=== PATIENT | female | born 1940 | race Caucasian/White ===

== ENCOUNTER 2020-10-27 08:32 | Day surgery (SDC) | payer MEDICARE, SELFPAY ==
[2020-10-20 16:33] VITALS: BMI 41.1
--- NOTE | 2020-10-23 14:38 | HO.ANESPROP2 ---
Documented by User: Loni Juárez NP 10/28/20 08:34 HPI - Anesthesia Eval Consult details Narrative: 80yo F for Left Cataract Extraction IOL Insertion PCP cleared No prev cataract on [facility] Past Medical History Medical History Arthritis COVID-19 vaccine series completed HTN (hypertension) Migraines Surgical History Surgical History History of incision and drainage Hx of appendectomy Social History Social History Patient Tobacco Use Status: Never used Tobacco Are you DNR?: No Advance Directives: No Advance Directives Information Provided: No Advance Directives on File: No Meds Allergies Allergy/AdvReac Type Severity Reaction Status Date / Time Penicillins Allergy Rash Verified 10/20/20 16:26 Home Medications Medication Instructions Recorded Confirmed Last Taken Type acetaminophen 325 mg tablet 650 mg PO QID PRN 10/20/20 10/20/20 Unknown History aspirin 81 mg tablet,delayed 81 mg PO DAILY 10/20/20 10/20/20 Unknown History release butalbital 50 mg-acetaminophen 325 1 cap PO QID PRN 10/20/20 10/20/20 Unknown History mg capsule calcium carbonate 600 mg (1,500 tab PO 10/20/20 Unknown History mg)-vitamin D3 400 unit tablet hydralazine 25 mg tablet 25 mg PO TID 10/20/20 10/20/20 10/27/20 History hydrochlorothiazide 25 mg tablet 25 mg PO DAILY 10/20/20 10/20/20 Unknown History magnesium oxide 400 mg PO DAILY 10/20/20 10/20/20 Unknown History metoprolol tartrate 100 mg tablet 100 mg PO BID 10/20/20 10/20/20 10/27/20 History potassium chloride 10 mEq 10 meq PO DAILY 10/20/20 10/20/20 Unknown History capsule,extended release Exam Exam Date and Time: October 23, 2020 1438 Height,Weight and Vital Signs: Height 5 ft 4 in Weight 108.862 kg Assessment and Plan Assessment Anesthesia Assessment: Chart Reviewed Documented by User: Jenna Conti MD 10/27/20 09:52 [facility] Past Medical History Medical History Arthritis COVID-19 vaccine series completed HTN (hypertension) Migraines Family History Family history of problems with anesthesia: Yes Surgical History Surgical History History of incision and drainage Hx of appendectomy History of Problems with Anesthesia: No Social History Social History Patient Tobacco Use Status: Never used Tobacco Are you DNR?: No Advance Directives: No Advance Directives Information Provided: No Advance Directives on File: No Meds Allergies Allergy/AdvReac Type Severity Reaction Status Date / Time Penicillins Allergy Rash Verified 10/20/20 16:26 Home Medications Medication Instructions Recorded Confirmed Last Taken Type acetaminophen 325 mg tablet 650 mg PO QID PRN 10/20/20 10/20/20 Unknown History aspirin 81 mg tablet,delayed 81 mg PO DAILY 10/20/20 10/20/20 Unknown History release butalbital 50 mg-acetaminophen 325 1 cap PO QID PRN 10/20/20 10/20/20 Unknown History mg capsule calcium carbonate 600 mg (1,500 tab PO 10/20/20 Unknown History mg)-vitamin D3 400 unit tablet hydralazine 25 mg tablet 25 mg PO TID 10/20/20 10/20/20 10/27/20 History hydrochlorothiazide 25 mg tablet 25 mg PO DAILY 10/20/20 10/20/20 Unknown History magnesium oxide 400 mg PO DAILY 10/20/20 10/20/20 Unknown History metoprolol tartrate 100 mg tablet 100 mg PO BID 10/20/20 10/20/20 10/27/20 History potassium chloride 10 mEq 10 meq PO DAILY 10/20/20 10/20/20 Unknown History capsule,extended release Exam Airway Mallampati Class: II TM Dist: >3cm Neck ROM: Full Loose/Missing/Broken Teeth: No Heart: RRR Lungs: CTA Assessment and Plan Assessment Anesthesia Assessment: Anesthesia Plan Discussed Final Anesthetic Review Family History of Problems with Anesthesia: Yes History of Problems with Anesthesia: No NPO: Yes ASA Class: III Final Preanesthetic Review: Meds/Allgs Chart Reviewed, Consent Obtained/Reviewed and Anes Risks/Benef Reviewed Patient Risk: Low Procedure Risk: Low Anesthetic Plan Anesthetic Plan: MAC: Disposition: Standard PACU
[2020-10-27 09:43] VITALS: BP 184/72; PULSE 74; RESP 18; TEMP 36.3; O2SAT 97
[2020-10-27] MEDS: Lactated Ringers 500 ML 50 ML IV (09:48)
[2020-10-27] MEDS: Phenylephrine HCL 2.5% Oph SoL 2 ML BOTTLE 1 DROP EYE-LEFT ×3 (09:49→09:53)
[2020-10-27] MEDS: Tropicamide 1 % Ophth Sol 3 ML BTL 1 DROP EYE-LEFT ×3 (09:50→09:53)
[2020-10-27 09:55] VITALS: BP 165/72
--- NOTE | 2020-10-27 11:03 | HO.PNOPHT ---
Ophthalmology Procedure Procedure Date of Service: 10/27/20 Ophthalmology Viscoelastic: Healon Duet Dual Pack Pro Ophthalmology Lenses: TECIDANIA [id number] (23) Procedure Notes: PREOPERATIVE DIAGNOSIS: Decreased visual acuity left eye secondary to cataract POSTOPERATIVE DIAGNOSIS: Same PROCEDURE: Left cataract extraction with intraocular lens insertion SURGEON: Alejandro Blanco M.D. ANESTHESIA: Topical/MAC ESTIMATED BLOOD LOSS: None COMPLICATIONS: None After obtaining informed consent, the patient was brought to the operation room suite and placed in the supine position. After adequate sedation per anesthesia, topical drops of Tetracaine were given to the left eye. The eye was then prepped and draped in the usual sterile fashion. The operating room microscope was then positioned over the operative eye and a lid speculum placed. A paracentesis was created. Viscoelastic was then instilled into the anterior chamber. A three plane incision was then created temporally, utilizing a 2.85 mm keratome. Capsulotomy forceps were then utilized to create a circular tear capsulotomy. Hydrodissection and hydrodelineation were carried out until adequate mobilization of the nucleus occurred. Phacoemulsification was then utilized to remove the dense central nucleus followed by removal of the cortical material utilizing the automated aspiration irrigation unit. Viscoat elastic was instilled into the posterior capsular bag followed by placement of a posterior chamber intraocular lens without difficulty. The residual Viscoat elastic was then removed utilizing the automated IA machine. The wound was check and found to be watertight. The patient tolerated the procedure well and the lid speculum was removed. Intracameral injection of Vigamox 0.1 mL followed by a subtenon injection of Kenalog-40 0.2 mL were administered. The patient will be seen in the a.m.
[2020-10-27 11:26] VITALS: BP 142/60; PULSE 57; RESP 16; TEMP 36.2; O2SAT 99
== END 2020-10-27 11:48 | disposition home or self-care (01) ==
PROVIDERS: PCP Internal Medicine; Visit Provider Ophthalmology
PROC: (CPT 66985; principal; 2020-10-27 11:20)
DX: H25.12 Age-related nuclear cataract, left eye (principal); H54.7 Unspecified visual loss; H35.00 Unspecified background retinopathy; I10 Essential (primary) hypertension; M35.3 Polymyalgia rheumatica; Z79.899 Other long term (current) drug therapy
CPT/HCPCS: 66984; J2250; J3010; J3300; V2632

== ENCOUNTER 2024-07-30 08:02 | Day surgery (SDC) | payer MEDICARE, SELFPAY ==
[2024-07-17 08:10] VITALS: BMI 42.6
--- NOTE | 2024-07-26 14:35 | HO.ANESPROP2 ---
Documented by User: Loni Juárez NP 07/26/24 14:36 HPI - Anesthesia Eval Consult details Narrative: 84yo F for Right Excisional biopsy of skin lesion upper lid (brow line) [facility] Past Medical History Medical History Ascending aorta dilatation Hypomagnesemia Osteopenia Hypokalemia Hyperlipidemia Arthritis COVID-19 vaccine series completed Migraines HTN (hypertension) Family History Family history of problems with anesthesia: Yes Surgical History Surgical History History of cataract surgery H/O colonoscopy History of incision and drainage Hx of appendectomy History of Problems with Anesthesia: No Social History Social History Patient Tobacco Use Status: Never used Tobacco Are you DNR?: No Advance Directives: No Advance Directives Information Provided: Yes Advance Directives on File: No Patient : No : No Meds Allergies Allergy/AdvReac Type Severity Reaction Status Date / Time Penicillins Allergy Intermediate Rash Verified 07/30/24 09:20 Home Medications ?Medication ?Instructions ?Recorded ?Confirmed ?Last Taken ?Type hydralazine 25 mg tablet 25 mg PO TID 10/20/20 07/30/24 07/30/24 History metoprolol tartrate 100 mg tablet 100 mg PO BID 10/20/20 07/30/24 07/30/24 History hydrochlorothiazide 25 mg tablet 25 mg PO DAILY 07/17/24 07/30/24 07/29/24 History Exam Height,Weight and Vital Signs: Height 5 ft 4 in Weight 112.491 kg Assessment and Plan Assessment Anesthesia Assessment: Chart Reviewed Final Anesthetic Review Family History of Problems with Anesthesia: Yes History of Problems with Anesthesia: No Documented by User: Noelle Delgadillo MD 07/30/24 09:28 [facility] Past Medical History Medical History Ascending aorta dilatation Hypomagnesemia Osteopenia Hypokalemia Hyperlipidemia Arthritis COVID-19 vaccine series completed Migraines HTN (hypertension) Surgical History Surgical History History of cataract surgery H/O colonoscopy History of incision and drainage Hx of appendectomy Social History Social History Patient Tobacco Use Status: Never used Tobacco Are you DNR?: No Advance Directives: No Advance Directives Information Provided: Yes Advance Directives on File: No Patient : No : No Meds Allergies Allergy/AdvReac Type Severity Reaction Status Date / Time Penicillins Allergy Intermediate Rash Verified 07/30/24 09:20 Home Medications ?Medication ?Instructions ?Recorded ?Confirmed ?Last Taken ?Type hydralazine 25 mg tablet 25 mg PO TID 10/20/20 07/30/24 07/30/24 History metoprolol tartrate 100 mg tablet 100 mg PO BID 10/20/20 07/30/24 07/30/24 History hydrochlorothiazide 25 mg tablet 25 mg PO DAILY 07/17/24 07/30/24 07/29/24 History Exam Airway Mallampati Class: II TM Dist: >3cm Neck ROM: Limited Heart: rrr Lungs: cta Assessment and Plan Assessment Anesthesia Assessment: Anesthesia Plan Discussed Final Anesthetic Review NPO: Yes ASA Class: III Final Preanesthetic Review: No Changes in Pt Med Stat, Meds/Allgs Chart Reviewed, Consent Obtained/Reviewed and Anes Risks/Benef Reviewed Patient Risk: Intermediate Procedure Risk: Low Anesthetic Plan Anesthetic Plan: MAC: Disposition: Standard PACU
[2024-07-30 09:13] VITALS: BP 193/85; PULSE 70; RESP 16; TEMP 37.4; O2SAT 96; BMI 43.4
[2024-07-30] MEDS: Lactated Ringers 500 ML 50 ML IV (09:33)
--- NOTE | 2024-07-30 10:30 | MHC.SHP ---
Pre-Procedural Eval Section A - 24 Hr Update-Section A only Date of Service: 07/30/24 The patient is an INPATIENT: No Changes since office visit: No Cold of Flu in the past 2 weeks, No New Medical Problems, No Changes in Medication and No Patient answered all questions The patient has been examined within 24 hours of the surgical procedure. The History & Physical has been completed within 30 days and I have reviewed it.: Yes Section B - Complete if H&P > 30 days Chief Complaint: Disorder of the skin and subcutaneous tissue, unsp Allergies: Allergies Allergy/AdvReac Type Severity Reaction Status Date / Time Penicillins Allergy Intermediate Rash Verified 07/30/24 09:20 Plan Diagnosis/Plan: Unchanged I have reviewed the history and physical and performed a pertinent physical examination on my patient. No changes have occurred unless specified. Time Spent With Patient Time: Total time managing care of this patient today ____ minutes.
[2024-07-30 11:55] VITALS: BP 144/70; PULSE 70; RESP 12; TEMP 36.7; O2SAT 97
[2024-07-30 12:02] VITALS: BP 164/72; PULSE 59; RESP 16; TEMP 36.7; O2SAT 97
--- NOTE | 2024-07-30 22:04 | OP_ITS ---
DATE OF SERVICE: 07/30/2024 SURGEON: Alejandro Blanco MD PREOPERATIVE DIAGNOSIS: Basal cell of the medial right brow area. POSTOPERATIVE DIAGNOSIS: Basal cell of the medial right brow area. PROCEDURE PERFORMED: ESTIMATED BLOOD LOSS: COMPLICATIONS: ANESTHESIA: Local with MAC. ASSISTANTS: SPECIMENS: DESCRIPTION OF PROCEDURE: After obtaining informed consent, the patient was brought to the operating room and placed in the supine position. After adequate sedation, the area was prepped and draped first and then lidocaine was injected subcutaneously around the area. A 15-blade was then utilized to create incision. Leida scissors were utilized to excise the lesion from the area. 5-0 suture fast absorbing was utilized to close the wound. The specimen was sent to pathology. We awaited pathology results and found the margins were free of basal cell cancer. The lesion was approximately 1 cm in size. Erythromycin was then utilized and placed under the incision site. Patient tolerated the procedure well and will be seen in followup. MD MIRANDA Little/MODL / [id number]
== END 2024-07-30 12:12 | disposition home or self-care (01) ==
PROVIDERS: Visit Provider Ophthalmology
PROC: (CPT 11641; principal; 2024-07-30 10:30)
DX: C44.319 Basal cell carcinoma of skin of other parts of face (principal); H35.033 Hypertensive retinopathy, bilateral; Z96.1 Presence of intraocular lens; H04.123 Dry eye syndrome of bilateral lacrimal glands; H18.413 Arcus senilis, bilateral; I10 Essential (primary) hypertension; I71.21 Aneurysm of the ascending aorta, without rupture; E78.5 Hyperlipidemia, unspecified; E83.42 Hypomagnesemia; E87.6 Hypokalemia; M35.3 Polymyalgia rheumatica; G43.909 Migraine, unspecified, not intractable, without status migrainosus; Z79.899 Other long term (current) drug therapy; Z88.0 Allergy status to penicillin
CPT/HCPCS: 11641; 88305; 88331; 88332; J2003; J2004; J2250; J2704; J3010